=== PATIENT | male | born 1965 | race Caucasian/White ===

== ENCOUNTER 2019-08-19 08:40 | Inpatient (IN) | payer MEDICARE, OTHER ==
--- NOTE | 2019-08-18 17:00 | Pre-op HX & Phy Repo 2 SIG ---
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 The patient has a past history of ulcerative colitis. In 1993, he underwent proctocolectomy with Sarahi ileostomy, which was converted in 2008 to a Hernandez type of Kock pouch continent ileostomy. He required revision of the stoma in October 2009 and revision of the valve of his pouch in February 2010. On 12/19/2018 in [place], he underwent another revision of his stoma, but that has resulted in poor healing with the stoma being very stenotic and retracted mucosa, although he is able to insert his intubation catheter to evacuate stool several times daily. For several months, he used an indwelling stent, but the stoma has not improved and he struggles to get the catheter into the opening. He is not having any of the pouch problems. He is scheduled to undergo admission with pouch endoscopy and revision of the stoma or laparotomy with creation of a new valve with preservation of the existing Hernandez pouch with creation of a new valve and stoma, possible relocation to the left lower quadrant. MEDICATIONS: Metformin, pantoprazole, Protonix, and naltrexone, he takes 4.5 mg for chronic pain in his neck and knees due to arthritis. He also takes magnesium citrate capsules for magnesium replacement. ALLERGIES TO MEDICATIONS: None. OPERATIONS: In addition to the above, he has undergone bilateral total knee replacement, neck fusion in 2013, shoulder surgery on the left side, bilateral knee replacement 2015. PHYSICAL EXAMINATION: The patient is 6 foot, approximately 185 pounds. [place] and will be examined upon arrival and dictated separately. IMPRESSION: 1. Malfunctioning Hernandez continent ileostomy with recurrent stenosis and stricture of the stoma. 2. History of ulcerative colitis. 3. Diabetes. 4. Status post neck fusion in 2013 and total knee replacement in 2016. 5. Status post multiple abdominal operations. 5.1. Proctocolectomy and Sarahi ileostomy in 1993. 5.2. Hernandez continent ileostomy in 2008. 5.3. Revision of Hernandez continent ileostomy stoma in October 2009. 5.4. Revision of Hernandez continent ileostomy valve in February 2010. 5.5. Revision of Hernandez continent ileostomy stoma in [place] December 2018. PLAN: The patient will be admitted to undergo insertion of a dual lumen PICC line. A full bowel prep, pouch endoscopy, insertion of a catheter into his pouch for continuous gravity drainage, and preoperative oral as well as intravenous antibiotics and subcutaneous heparin. I have had a full discussion with the patient regarding his condition, the nature of the surgery. We will have another detailed discussion in person when he arrives from out of state. Umer Dixon M.D. DR: ANGELIKA JOB#: [id number] CC:
[~2019-08-19] VITALS: Ht 182.9 cm; Wt 75.7 kg
[2019-08-19 09:00] VITALS: BP 127/85
--- NOTE | 2019-08-19 09:05 | Anethesia Preoperative Eval ---
Anesthesia Pre-op PMH/ROS General Date of Evaluation: Aug 19, 2019 Time of Evaluation: 09:05 Anesthesiologist: jared ASA Score: ASA 2 Mallampati Score Class I : Soft palate, uvula, fauces, pillars visible Class II: Soft palate, uvula, fauces visible Class III: Soft palate, base of uvula visible Class IV: Only hard plate visible Mallampati Classification: Class II Surgeon: Destiny Diagnosis: Malfunction of Hernandez ileostomy Surgical Procedure: Revision of stoma; laparatomy Anesthesia History: none Family History: no anesthesia problems Allergies: Coded Allergies: No Known Allergies (Verified Allergy, Mild, 02/14/10) Medications: see eMAR Patient NPO?: Yes NPO Date: Aug 19, 2019 NPO Time: 00:01 Past Medical History Cardiovascular: Reports: HTN; Denies: CAD, HI, valve dz, arrhythmia, other Pulmonary: Denies: asthma, COPD, [place], other Gastrointestinal/Genitourinary: Reports: other - u colitis; Denies: GERD, CRI, ESRD Neurologic/Psychiatric: Denies: dementia, CVA, depression/anxiety, TIA, other Endocrine: Reports: DM; Denies: hypothyroidism, steroids, other HEENT: Denies: cataract (L), cataract (R), glaucoma, [place] (L), [place] (R), other Hematology/Immune: Denies: anemia, DVT, bleeding disorder, other Musculoskeletal/Integumentary: Reports: DJD; Denies: OA, RA, DDD, edema, other PMH Narrative: chronic pain PSxH Narrative: bilateral total knee replacement, neck fusion in 2013, shoulder surgery on the left side, bilateral knee replacement 2015; multiple abd surgeries Anesthesia Pre-op Phys. Exam Physician Exam Constitutional: NAD Neurologic: CN 2-12 intact Cardiovascular: RRR Respiratory: CTA Gastrointestinal: S/NT/ND Airway Exam Mallampati Classification 2 Mallampati Score: Class II MO: full ROM: full Dentures: no upper, no lower Anesthesia Pre-op A/P Studies Pre-op Studies: EKG - SR Risk Assessment & Plan Plan: Amarilys Blanco CRNA Aug 19, 2019 09:05
[2019-08-19] MEDS ORDERED: Zolpidem 5mg tab ORAL PRN (09:30)
[2019-08-19] MEDS ORDERED: Lidocaine 1% Plain 30 ml INJ PRN (09:30)
[2019-08-19] MEDS ORDERED: Heparin1,000 units/500ml Premix(Conc:2 units/ml) IV PRN (09:30)
--- NOTE | 2019-08-19 10:21 | NUR ---
NURSE NOTES: ADMITTED A 54 YR OLD MALE WITH DX OF MALFUNCTIONING VELÁZQUEZ CONTINENT ILEOSTOMY. AWAKEALERT. ADM CARE DONE SEE ADM ASSESSMENT.
[2019-08-19] MEDS ORDERED: METFORMIN HCL1000 M1 ORAL (10:30)
[2019-08-19] MEDS ORDERED: PANTOPRAZOLE SO40 MG ORAL (10:30)
[2019-08-19 10:43] LABS: BASOPHILS % (AUTO) 1.1 % (0.0-2.0); EOSINOPHILS % (AUTO) 6.1 % (0.0-3.0); HEMATOCRIT 44.5 % (42.0-52.0); HEMOGLOBIN 14.6 G/DL (14.2-18.0); LYMPHOCYTES % (AUTO) 17.4 % (20.0-45.0); MEAN CORPUSCULAR VOLUME 85 FL (80-99); MONOCYTES % (AUTO) 8.7 % (1.0-10.0); NEUTROPHILS % (AUTO) 66.7 % (45.0-75.0); PLATELET COUNT 284 K/UL (150-450); RED BLOOD COUNT 5.26 M/UL (4.70-6.10); RED CELL DISTRIBUTION WIDTH 12.3 % (11.6-14.8); WHITE BLOOD COUNT 5.6 K/UL (4.8-10.8)
[2019-08-19 10:48] LABS: ANION GAP 4 mmol/L (5-15); BLOOD UREA NITROGEN 17 mg/dL (7-18); CALCIUM 9.4 MG/DL (8.5-10.1); CARBON DIOXIDE 34 MMOL/L (21-32); CHLORIDE 103 MMOL/L (98-107); SODIUM 141 MMOL/L (136-145)
[2019-08-19 10:54] LABS: INR 0.9 (0.9-1.1)
[2019-08-19 10:57] LABS: ALANINE AMINOTRANSFERASE 24 U/L (12-78); ALBUMIN 3.7 G/DL (3.4-5.0); ALKALINE PHOSPHATASE 64 U/L (46-116); ASPARTATE AMINO TRANSFERASE 10 U/L (15-37); BILIRUBIN,TOTAL 0.3 MG/DL (0.2-1.0)
[2019-08-19] MEDS: Neomycin Sulfate 500mg Tab ORAL SCH ×3 (11:46→20:55)
--- NOTE | 2019-08-19 11:57 | Diagnostic Imaging Report ---
Indication: Cough Comparison: None A single view chest radiograph was obtained. Findings: Cardiomediastinal appearance is within normal limits for age. The lungs are clear. Pulmonary vascularity is appropriate. The diaphragmatic contour is smooth and costophrenic angles are sharp. No pleural effusions are identified. There is a lower cervical fusion plate. The bones are unremarkable. Impression: No acute findings
[2019-08-19 12:00] VITALS: BP 133/87
[2019-08-19 12:04] LABS: APPEARANCE,URINE CLEAR; BILIRUBIN, URINE NEGATIVE (NEGATIVE); GLUCOSE, URINE (UA) 2+ (NEGATIVE); KETONES,URINE 1+ (NEGATIVE); LEUKOCYTE ESTERASE ,URINE NEGATIVE (NEGATIVE); NITRITE,URINE NEGATIVE (NEGATIVE); PH,URINE 5 (4.5-8.0); PROTEIN,URINE NEGATIVE (NEGATIVE); UROBILINOGEN,URINE NORMAL MG/DL (0.0-1.0)
[2019-08-19 12:19] LABS: COLOR,URINE YELLOW
[2019-08-19] MEDS: NovoLOG Insulin Flexpen SUBQ SCH ×3 (12:35→21:07)
--- NOTE | 2019-08-19 12:48 | Pre-Procedure Note/Attestation ---
Pre-Procedure Note/Attestation Complete Prior to Procedure Planned Procedure: not applicable Procedure Narrative: Hernandez continent ileostomy pouch endoscopy Indications for Procedure Pre-Operative Diagnosis: recurrent stoma stricture of Hernandez Pouch Attestation I attest that I discussed the nature of the procedure; its benefits; risks and complications; and alternatives (and the risks and benefits of such alternatives ), prior to the procedure, with the patient (or the patient's legal field sales representative). I attest that, if there was a reasonable possibility of needing a blood transfusion, the patient (or the patient's legal field sales representative) was given the [facility] standardized written summary, pursuant to the [place] Blood Safety Act ([place] Health and Safety Code # 1645, as amended). I attest that I re-evaluated the patient just prior to the surgery and that there has been no change in the patient's H&P, except as documented below: none Umer Dixon MD Aug 19, 2019 12:48
[2019-08-19] MEDS ORDERED: Omnipaque-300 100ml vial INJ PRN (13:30)
--- NOTE | 2019-08-19 13:34 | Brief Operative Note ---
Immediate Post Operative Note Operative Note Pre-op Diagnosis: recurrent stoma stricture of Hernandez Pouch Procedure: Hernandez pouch endoscopy Post-op Diagnosis: recurrent stoma stenosis RLQ mass and marked peristomal inflammation Post-op Diagnosis: same as pre-op plus - RLQ mass and inflammation Findings: consistent w/pre-op dx studies Surgeon: agata Anesthesiologist: danita Anesthesia: other - none Specimen: none Complications: none Condition: stable Fluids: none Estimated Blood Loss: none Drains: other - 28 Serrano to Hernandez pouch Implant(s) used?: No Umer Dixon MD Aug 19, 2019 13:34
[2019-08-19 14:00] VITALS: BP 132/77
--- NOTE | 2019-08-19 14:00 | NUR ---
NURSE NOTES: BACK TO ROOM SP EBER POUCH ENDOSCOPY., AND PICC LINE INSERTION SATNAM. AWAKE ALERT. WITH ILEOSTOMY CATHETER TO DRAINAGE BAG DRAINING BROWN OUTPUT. V/S TAKEN. IN NO ACUTE DISTRESS.
--- NOTE | 2019-08-19 14:15 | NUR ---
RADIOLOGY NOTE: LEFT UPPER EXTREMITY PICC PLACED.
--- NOTE | 2019-08-19 15:42 | General Progress Note ---
Progress Note Progress Note H&P dictated. Hernandez pouch endoscopy reveals stoma stricture with retracted mucosa. Exam reveals RLQ mass with marked peristomal inflammation and induration with tenderness. BUN 17 Cr 1.0 Albumin 3.7 Imp: Recurrent Hernandez pouch stoma stricture RLQ mass R/O incarcerated peristomal hernia vs. inflammatory mass Plan; CT scan abd+pelvis with oral and IV contrast IV hydration and f/u labs Delay surgery until 08/[address] scan findings Continuous drainage of Hernandez continent ileostomy Umer Dixon MD Aug 19, 2019 15:42
--- NOTE | 2019-08-19 15:45 | Pre-op HX & Phy Repo 2 SIG ---
DATE OF ADMISSION: 08/19/2019 HISTORY OF PRESENT ILLNESS: The patient is now [place] and is examined. He states he has lost approximately 30 pounds, but feels that he eats normally. PHYSICAL EXAMINATION: GENERAL: He is 6 foot, 150 pounds, well-developed, well-nourished despite appearing thin. HEENT: Within normal limits. LUNGS: Clear. HEART: Regular rhythm. BREASTS: Without masses. ABDOMEN: Soft with a long midline scar and other transverse scars. There is a right lower quadrant stoma from the Hernandez continent ileostomy pouch with marked peristomal fibrosis thickening, swelling, and tenderness and a right lower quadrant mass, approximately 8 x 10 cm. It is uncertain whether this is a incarcerated parastomal hernia or inflammatory in nature. It is tender and not reducible. GENITALIA: Within normal limits. RECTAL: Status post proctectomy. EXTREMITIES: Without edema. Pulses 2+ femoral to pedal bilaterally. NEUROLOGIC: Physiologic. IMPRESSION: 1. Malfunctioning Hernandez continent ileostomy with recurrent stenosis and stricturing of the stoma. 2. Right lower quadrant mass of uncertain etiology. 3. Diabetes. 4. History of ulcerative colitis. 5. Status post neck fusion in 2013 and total knee replacement in 2015. 6. STATUS POST MULTIPLE ABDOMINAL OPERATIONS: 6.1. Proctocolectomy and Sarahi ileostomy in 1993. 6.2. Hernandez continent ileostomy in 2002. 6.3. Revision of Hernandez continent ileostomy stoma, October 2009. 6.4. Revision of Hernandez continent ileostomy valve, February 2010. 6.5. Revision of Hernandez continent ileostomy stoma performed in [place] in December 2018. PLAN: The patient will undergo pouch endoscopy. He will require a CT scan of abdomen and pelvis with oral and IV contrast with an indwelling catheter in his Hernandez pouch to continuous gravity drainage. Surgical revision of the stoma, which may require laparotomy with creation of a new valve and stoma with preservation of the existing Hernandez pouch will be deferred until the CT scan results are known and appropriate plans undertaken. Umer Dixon M.D. DR: KT/HECTOR JOB#: [id number] CC:
[2019-08-19 16:00] VITALS: BP 129/80
[2019-08-19] MEDS ORDERED: NovoLOG Insulin Flexpen SUBQ SCH (16:30)
--- NOTE | 2019-08-19 17:08 | Diagnostic Imaging Report ---
Indication: watermelon harvesting supervisor venous access Findings: After the indications, procedure, risks, complications, and alternatives of the procedure were explained, written informed consent was obtained. The left upper extremity was prepped with alcohol. All elements of maximal sterile barrier technique were followed including usage of a cap, mask, sterile gown, sterile gloves, hand hygiene and a large sterile sheet. Sonographic evaluation of the upper extremity was performed demonstrating a patent and compressible basilic vein. Access was obtained under real-time ultrasound guidance (with utilization of sterile gel and sterile probe cover) and digital image was saved and archived. An .018 wire was introduced. Needle exchanged for a 5 Kyrgyz peel-away sheath. Measurements were obtained. A 5 Kyrgyz dual-lumen Power PICC line catheter was cut to 45 cm and introduced over the wire. Peel-away sheath and wire were removed.Catheter was secured to the skin using 2-0 Prolene suture. Both ports aspirate and flush easily. A single fluoroscopic image shows the distal tip in the superior vena cava. Total fluoroscopic time was 30 seconds. Impression: Successful placement of an upper extremity PICC line catheter
[2019-08-19] MEDS: D5 1/2NS w/KCl 20mEq 1,000 ML IV SCH (17:51)
--- NOTE | 2019-08-19 18:30 | NUR ---
NURSE NOTES: AMBULATED OUT IN THE [place],TOLERATED.
--- NOTE | 2019-08-19 19:00 | NUR ---
NURSE NOTES: QUIET IN BED. NO APPARENT DISCOMFORT.
--- NOTE | 2019-08-19 19:16 | NUR ---
HAND-OFF: Report given to CHIARA PEREZ.
--- NOTE | 2019-08-19 19:30 | NUR ---
NURSE NOTES: Received patient in no apparent distress. A&OX4. PICC line noted on left upper arm, patent and intact. Remind patient midnight NPO, patient fully understood. Bed in lowest position. Call light within reach. Will continue to monitor.
[2019-08-19 20:00] VITALS: BP 137/84
--- NOTE | 2019-08-19 20:00 | Procedure Note ---
DATE OF PROCEDURE: 08/19/2019 ENDOSCOPIST: Umer Dixon M.D. ANESTHESIA: None. SEDATION: None. PRE-ENDOSCOPY DIAGNOSES: 1. Recurrent stoma stricture and stenosis of Hernandez continent ileostomy. 2. History of ulcerative colitis. 3. Status post multiple abdominal operations. 3.1. Proctocolectomy and Sarahi ileostomy in 1993. 3.2. Hernandez continent ileostomy in 2008. 3.3. Revision of Hernandez continent ileostomy stoma in October 2009. 3.4. Revision of Hernandez continent ileostomy valve in February 2010. 3.5. Revision of Hernandez continent ileostomy stoma performed in [place] in December 2018. POST-ENDOSCOPY DIAGNOSES: 1. Recurrent stoma stricture and stenosis of Hernandez continent ileostomy. 2. History of ulcerative colitis. 3. Status post multiple abdominal operations. 3.1. Proctocolectomy and Sarahi ileostomy in 1993. 3.2. Hernandez continent ileostomy in 2008. 3.3. Revision of Hernandez continent ileostomy stoma in October 2009. 3.4. Revision of Hernandez continent ileostomy valve in February 2010. 3.5. Revision of Hernandez continent ileostomy stoma performed in [place] in December 2018. ENDOSCOPY PERFORMED: Hernandez continent ileostomy pouch endoscopy. FINDINGS: Examination of the patient's abdomen reveals a right lower quadrant mass with tenderness and marked peristomal inflammation and fibrosis with retraction of the mucosa below the skin at least 1 cm. It is uncertain whether the mass is inflammatory in nature or incarcerated peristomal hernia. The endoscopy revealed a redundant access segment with the distance from the stoma to the tip of the valve 12 cm which in this patient should be 8 or 9 cm. PROCEDURE IN DETAIL: The patient was positioned supine in the GI lab without any sedation or anesthesia given or needed. Using a GIF-P140 endoscope, the stoma was entered and a somewhat angulated tract negotiated into the pouch. The pouch was distensible and mucosa appeared normal. Retroflexed views revealed a well formed valve, but the tip of the valve had a broad band of tissue stretching to the pouch wall. However, the patient has no incontinence and no difficulty with intubation other than at the stoma. Withdrawal views confirmed the above findings. Following removal of the endoscope, I manipulated the 28-Uzbek Serrano into the pouch and completely decompressed it, taped it to the skin with a dressing over the stoma and connected to a continuous gravity drainage. The patient will need to undergo CT scan of abdomen and pelvis with oral and intravenous contrast before undergoing surgical revision of the stoma, which could require laparotomy with creation of a new valve and stoma. He tolerated the endoscopy well. Umer Dixon M.D. DR: KIESHA JOB#: [id number] CC:
[2019-08-19] MEDS: Dyna-Hex 2% Top Sol 2oz TOPIC SCH (20:55)
[2019-08-20] VITALS: BP 132/78
[2019-08-20] MEDS ORDERED: Ampicillin/Sulbactam Sod 3 GM in NS 110 ML IV SCH ×2
[2019-08-20] MEDS: D5 1/2NS w/KCl 20mEq 1,000 ML IV SCH ×3 (03:16→23:22)
[2019-08-20 04:00] VITALS: BP 138/91
[2019-08-20 05:16] LABS: BASOPHILS % (AUTO) 0.5 % (0.0-2.0); EOSINOPHILS % (AUTO) 6.8 % (0.0-3.0); HEMATOCRIT 38.5 % (42.0-52.0); HEMOGLOBIN 12.7 G/DL (14.2-18.0); LYMPHOCYTES % (AUTO) 21.7 % (20.0-45.0); MEAN CORPUSCULAR VOLUME 84 FL (80-99); MONOCYTES % (AUTO) 8.9 % (1.0-10.0); NEUTROPHILS % (AUTO) 62.1 % (45.0-75.0); PLATELET COUNT 236 K/UL (150-450); RED BLOOD COUNT 4.61 M/UL (4.70-6.10); RED CELL DISTRIBUTION WIDTH 12.1 % (11.6-14.8); WHITE BLOOD COUNT 3.9 K/UL (4.8-10.8)
[2019-08-20] MEDS ORDERED: Heparin 5000 units/ml inj SUBQ SCH (05:30)
[2019-08-20 05:37] LABS: ALANINE AMINOTRANSFERASE 18 U/L (12-78); ALBUMIN 3.1 G/DL (3.4-5.0); ALKALINE PHOSPHATASE 60 U/L (46-116); ANION GAP 3 mmol/L (5-15); ASPARTATE AMINO TRANSFERASE 12 U/L (15-37); BILIRUBIN,TOTAL 0.4 MG/DL (0.2-1.0); BLOOD UREA NITROGEN 9 mg/dL (7-18); CALCIUM 8.5 MG/DL (8.5-10.1); CARBON DIOXIDE 32 MMOL/L (21-32); CHLORIDE 102 MMOL/L (98-107); CREATININE 0.9 MG/DL (0.55-1.30); POTASSIUM 3.9 MMOL/L (3.5-5.1); SODIUM 137 MMOL/L (136-145)
[2019-08-20] MEDS: NovoLOG Insulin Flexpen SUBQ SCH ×4 (06:27→20:20)
--- NOTE | 2019-08-20 07:35 | NUR ---
HAND-OFF: Report given to Nicci PEREZ.
[2019-08-20 08:00] VITALS: BP 141/86
--- NOTE | 2019-08-20 08:00 | NUR ---
NURSE NOTES: Pt received from Bony PEREZ. Pt awake, AOx4 with no complaints of pain and no s/sx of distress. RR even and unlabored on RA. Ileostomy bag draining well to gravity. SATNAM PICC line dressing dry and intact with fluids infusing. Pt aware that CT of the ABD is scheduled for today. Oral contrast has not been provided yet. Will administer when available. Side rails upx2, bed low and locked, call light within reach. Will continue to monitor.
--- NOTE | 2019-08-20 09:00 | NUR ---
NURSE NOTES: Patient drank oral contrast. Ileostomy flushed.
--- NOTE | 2019-08-20 10:15 | NUR ---
NURSE NOTES: Pt taken down for CT. Fluids infusing.
--- NOTE | 2019-08-20 10:40 | NUR ---
NURSE NOTES: Patient returned from CT.
--- NOTE | 2019-08-20 11:03 | Diagnostic Imaging Report ---
Indication: Abdominal pain Technique: Continuous helical transaxial imaging of the abdomen and pelvis was obtained from the lung bases to the pubic symphysis during intravenous contrast administration. Coronal 2-D reformats were also obtained. Study obtained in a Siemens sensation [address] Automatic Exposure Control was utilized. Total Dose length Product (DLP): 754.[address] Dose Index Volume (CTDIvol): 13.6 mGy Comparison: None Findings: There is mild posterior basal atelectasis. There are surgical clips in the upper abdomen. The liver and spleen, adrenal glands and pancreas appear unremarkable. There are small bilateral renal hypodensities that are probably cystic. Gallbladder is moderately contracted. There is a continent ileostomy in the right lower quadrant. The catheter is within the pouch which is opacified by contrast material. There is no small bowel dilatation to suggest obstruction. There is a dilated contrast filled structure anterior to the pouch containing the catheter most likely representing part of the pouch or possibly a dilated, nonobstructed small bowel segment proximal to the pouch. There is no evidence of abscess. There is no free fluid. Urinary bladder is unremarkable. IMPRESSION: Continent ileostomy demonstrated. Catheter position is satisfactory. No evidence of bowel obstruction or other abnormalities. There is a prominent loop of the bowel which appears pouchlike, anterior to the catheter which is most likely part of the pouch. Atherosclerotic vascular disease Suggestion of bilateral renal cysts. Mild basal atelectasis The CT scanner at [facility] is accredited by the [employer] and the scans are performed using dose optimization techniques as appropriate to a performed exam including Automatic Exposure control.
[2019-08-20 12:00] VITALS: BP 138/85
--- NOTE | 2019-08-20 12:13 | General Progress Note ---
Progress Note Progress Note AVSS CT scan of abd+pelvis with contrast reveals only desmoplastic reaction harriett-stomal with some thickening of subq fat of RLQ abdominal wall. No hernia, No abscess Full discussion with patient regarding stoma revision, possible laparotomy with revision of Hernandez pouch and gastrostomy, including general risks and specific risks of BCIR revision; all questions answered. Plan: surgery tomorrow IV Flagyl + Unasyn pre-op SQ heparin Umer Dixon MD Aug 20, 2019 12:13
[2019-08-20 16:00] VITALS: BP 139/86
[2019-08-20] MEDS ORDERED: NS Irrig 1000ml ONE (16:26)
--- NOTE | 2019-08-20 16:43 | NUR ---
CASE MANAGEMENT:REVIEW 54 YR OLD FEMALE HERE FOR ELECTIVE SURGERY SI: RECURRENT STOMA STENOSIS RLQ MASS AND MARKED PERISTOMAL INFLAMMATION 97.4 82 18 127/85 99% ON RA GLUCOSE+168 IS: IVF@100/HR VELÁZQUEZ POUCH ENDOSCOPY : TO MED/SURG 3 [facility] INTERQUAL CRITERIA MET
--- NOTE | 2019-08-20 19:26 | NUR ---
HAND-OFF: Report given to Kandi PEREZ. Patient stable. Addendum: 08/20/19 at 1927 by RHIANNA CHAPMAN RN Consent signed and in chart.
--- NOTE | 2019-08-20 19:28 | NUR ---
NURSE NOTES: Patient is sitting in bedside chair, awake and alert x4. On room air with No signs of distress or SOB. Ileostomy bag intact and draining well. SATNAM PICC line intact and patent. Bed locked and in lowest position. Call light in reach. Will continue to monitor.
[2019-08-20 20:00] VITALS: BP 154/92
[2019-08-20] MEDS: Dyna-Hex 2% Top Sol 2oz TOPIC SCH (20:12)
[2019-08-21] VITALS (17 sets, daily range): BP systolic 109–145; BP diastolic 65–92
[2019-08-21] MEDS: NovoLOG Insulin Flexpen SUBQ SCH ×5 (05:46→20:46)
--- NOTE | 2019-08-21 06:00 | NUR ---
NURSE NOTES: True output 20 mL. Per patient, someone emptied ileostomy bag an hour prior. 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
[2019-08-21 06:12] LABS: BASOPHILS % (AUTO) 1.1 % (0.0-2.0); EOSINOPHILS % (AUTO) 8.2 % (0.0-3.0); HEMATOCRIT 37.5 % (42.0-52.0); HEMOGLOBIN 12.3 G/DL (14.2-18.0); LYMPHOCYTES % (AUTO) 19.9 % (20.0-45.0); MEAN CORPUSCULAR VOLUME 84 FL (80-99); MONOCYTES % (AUTO) 9.4 % (1.0-10.0); NEUTROPHILS % (AUTO) 61.4 % (45.0-75.0); PLATELET COUNT 203 K/UL (150-450); RED BLOOD COUNT 4.49 M/UL (4.70-6.10); RED CELL DISTRIBUTION WIDTH 12.1 % (11.6-14.8); WHITE BLOOD COUNT 3.6 K/UL (4.8-10.8)
[2019-08-21] MEDS: Ampicillin/Sulbactam Sod 3 GM in NS 110 ML IVPB SCH ×2 (06:15→11:50)
--- NOTE | 2019-08-21 07:06 | NUR ---
HAND-OFF: Report given to ANA Grajeda.
--- NOTE | 2019-08-21 07:18 | NUR ---
NURSE NOTES: Pt received from Kandi PEREZ. Pt awake, AOx4 with no complaints of pain and no s/sx of distress. RR even and unlabored on RA. Ileostomy bag draining well to gravity. SATNAM PICC line dressing dry and intact with fluids infusing. Pt ready for procedure today. Consent is signed and preop checklist completed. Side rails upx2, bed low and locked, call light within reach. Will continue to monitor. Addendum: 08/21/19 at 1025 by RHIANNA CHAPMAN RN PICC line flushed. Some resistance to red port but still able to flush.
[2019-08-21 07:22] LABS: IRON 49 ug/dL (50-175); TOTAL IRON BINDING CAPACITY 317 ug/dL (250-450)
[2019-08-21 07:23] LABS: % IRON SATURATION 15 % (15-50)
[2019-08-21 07:48] LABS: ANION GAP 10 mmol/L (5-15); BLOOD UREA NITROGEN 5 mg/dL (7-18); CALCIUM 8.6 MG/DL (8.5-10.1); CARBON DIOXIDE 27 MMOL/L (21-32); CHLORIDE 106 MMOL/L (98-107); CREATININE 0.7 MG/DL (0.55-1.30); FERRITIN 27 NG/ML (8-388); POTASSIUM 4.2 MMOL/L (3.5-5.1); SODIUM 143 MMOL/L (136-145)
--- NOTE | 2019-08-21 09:53 | NUR ---
CASE MANAGEMENT:REVIEW 08/21/19 SI: RECURRENT STOMA STENOSIS RLQ MASS AND MARKED PERISTOMAL INFLAMMATION 97.0 62 18 126/80 97% ON RA H/H-12.3/37.5 GLUCOSE+143 IS: IV FLAGYL Q6HRS IV AMPICILLIN Q6HRS IVF@100/HR HEPARIN SQ : MED/SURG STATUS 3 EAST PLAN: SCHEDULED FOR SURGERY FOR TODAY
[2019-08-21] MEDS: D5 1/2NS w/KCl 20mEq 1,000 ML IV SCH (09:59)
[2019-08-21] MEDS ORDERED: Heparin 5000 units/ml inj SUBQ SCH (10:00)
[2019-08-21] MEDS ORDERED: Lidocaine 1% MPF 10mg/ml 5ml ONE (12:01)
[2019-08-21] MEDS ORDERED: Propofol 200mg/20ml IV ONE (12:01)
[2019-08-21] MEDS ORDERED: Midazolam 2mg/2ml Inj ONE (12:01)
[2019-08-21] MEDS ORDERED: fentaNYL 100 mcg/2 mL IV ONE (12:01)
[2019-08-21] MEDS ORDERED: Rocuronium Bromide 50mg/5ml Inj IV ONE (12:05)
--- NOTE | 2019-08-21 12:12 | Pre-Procedure Note/Attestation ---
Pre-Procedure Note/Attestation Complete Prior to Procedure Planned Procedure: not applicable Procedure Narrative: revision of Hernandez continent ileostomy stoma, possible laparotomy with Hernandez pouch revision and possible gastrostomy Indications for Procedure Pre-Operative Diagnosis: recurrent stoma stricture of Hernandez Pouch Attestation I attest that I discussed the nature of the procedure; its benefits; risks and complications; and alternatives (and the risks and benefits of such alternatives ), prior to the procedure, with the patient (or the patient's legal office machines sales representative). I attest that, if there was a reasonable possibility of needing a blood transfusion, the patient (or the patient's legal office machines sales representative) was given the [place] [facility] standardized written summary, pursuant to the [place] Blood Safety Act ([place] Health and Safety Code # 1645, as amended). I attest that I re-evaluated the patient just prior to the surgery and that there has been no change in the patient's H&P, except as documented below: none Umer Dixon MD Aug 21, 2019 12:12
--- NOTE | 2019-08-21 12:35 | NUR ---
NURSE NOTES: Patient taken down for surgery. 150mL drained from Ileostomy bag.
[2019-08-21] MEDS ORDERED: Sterile Water Irrig 1000ml IRRIG ONE (12:43)
[2019-08-21] MEDS ORDERED: LR 1000ml ONE (12:43)
[2019-08-21] MEDS ORDERED: Bacitracin 50000 Units Vial IRRIG ONE (13:00)
[2019-08-21] MEDS ORDERED: Glycopyrrolate 0.2mg/ml 1ml Vial ONE (13:51)
[2019-08-21] MEDS ORDERED: Morphine Sulfate 10mg/ml Inj ONE (13:51)
[2019-08-21] MEDS ORDERED: Ketorolac 30mg Inj IV PRN (14:00)
[2019-08-21] MEDS ORDERED: DiphenhydrAMINE 50mg/ml Inj IVP PRN (14:00)
[2019-08-21] MEDS ORDERED: LORazepam 1mg tab SL PRN ×2 (14:45)
--- NOTE | 2019-08-21 14:45 | Brief Operative Note ---
Immediate Post Operative Note Operative Note Pre-op Diagnosis: recurrent stoma stricture of Hernandez Pouch Procedure: complex revision of Hernandez pouch stoma Post-op Diagnosis: recurrent stoma stricture of Hernandez continent ileostomy Post-op Diagnosis: same as pre-op Findings: consistent w/pre-op dx studies Surgeon: agata Raw Finish Mill Operator: david Anesthesiologist: javed Anesthesia: general Specimen: yes - stoma stricture Complications: none Condition: stable Fluids: see anesthesia record Estimated Blood Loss: minimal Drains: other - 28 Serrano to Hernandez pouch. 0.25" misbah Implant(s) used?: No Umer Dixon MD Aug 21, 2019 14:45
--- NOTE | 2019-08-21 14:49 | Immediate Post-Op Evaluation ---
Immediate Post-Op Evalulation Immediate Post-Op Evalulation Procedure: Revision of continent pouch stoma Date of Evaluation: Aug 21, 2019 Time of Evaluation: 14:46 IV Fluids: 500 Blood Products: Albumin 250 Estimated Blood Loss: min Urinary Output: 200 Blood Pressure Systolic: 114 Blood Pressure Diastolic: 80 Pulse Rate: 65 Respiratory Rate: 20 O2 Sat by Pulse Oximetry: 100 Temperature (Fahrenheit): 97.8 Pain Score (1-10): 1 Nausea: No Vomiting: No Complications none Patient Status: awake, patent, extubated, none Hydration Status: adequate Leonardo Mensah MD Aug 21, 2019 14:49
[2019-08-21] MEDS: Hydromorphone 0.5mg/0.5ml inj IVP PRN ×2 (15:00→15:09)
--- NOTE | 2019-08-21 16:45 | NUR ---
NURSE NOTES: Pt received from PACU. Patient AOx4 with no complaints of pain and no s/sx of distress. RR even and unlabored on 2L NC. Dressing dry and intact with Ileostomy draining well to gravity. Serrano draining to gravity. SCDs on. Will continue to monitor.
[2019-08-21] MEDS: 1/2NS w/KCl 20mEq 1000ml 1,000 ML IV SCH (17:13)
[2019-08-21] MEDS: Ampicillin/Sulbactam Sod 3 GM in NS 110 ML IV SCH (18:04)
--- NOTE | 2019-08-21 18:45 | Operative Note - Dictated ---
DATE OF OPERATION: 08/21/2019 SURGEON: Umer Dixon M.D. RN NIGHT: Juliocesar Gold M.D. ANESTHESIOLOGIST: Leonardo Mensah M.D. TYPE OF ANESTHESIA: General. PREOPERATIVE DIAGNOSES: 1. 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 2. History of ulcerative colitis. 3. Status post multiple abdominal operations. 3.1. Proctocolectomy and Sarahi ileostomy in 1993. 3.2. Hernandez continent intestinal reservoir 2008. 3.3. Revision of Hernandez continent ileostomy stoma in October 2009. 3.4. Revision for Hernandez continent ileostomy valve February 2010. 3.5. Revision of Hernandez continent ileostomy stoma performed in [place] in December 2018. POSTOPERATIVE DIAGNOSES: 1. 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 2. History of ulcerative colitis. 3. Status post multiple abdominal operations. 3.1. Proctocolectomy and Sarahi ileostomy in 1993. 3.2. Hernandez continent intestinal reservoir 2008. 3.3. Revision of Hernandez continent ileostomy stoma in October 2009. 3.4. Revision for Hernandez continent ileostomy valve February 2010. 3.5. Revision of Hernandez continent ileostomy stoma performed in [place] in December 2018. OPERATION PERFORMED: Complex revision of Hernandez continent ileostomy stoma in depth. DESCRIPTION OF PROCEDURE: The patient was taken to the operating room and under general endotracheal anesthesia with sequential compression device stockings in place, the patient was prepped and draped in usual fashion having received preoperative intravenous antibiotics and subcutaneous heparin. There was a marked desmoplastic reaction around the stoma oriented transversely. An elliptical incision was made encompassing all of this reaction achieving hemostasis with cautery. The stoma was circumscribed. The thickened tissue was resected from the musculature of the abdominal wall starting medial and lateral into the stoma and access segment of the Hernandez pouch was identified. A 28-Welsh Serrano catheter in the stoma facilitated dissection. I was able to mobilize flaps circumferentially so that the skin come together without any tension. We could not elevate the stoma from the abdominal wall, but the skin would come to it without tension and the stoma was wide open with the resection of the desmoplastic skin with the orifice of the stoma. The medial and lateral aspects of the incision were closed with interrupted 3-0 Vicryl and then the stoma was primarily matured superiorly with interrupted 2-0 chromic sutures from 3 and 9 o'clock and inferiorly with interrupted and continuous 2-0 chromic locking suture. A 28-Welsh Serrano catheter was positioned into the pouch with slight manipulation required. Good position was confirmed with irrigation. A quarter-inch Kittredge drain was placed into the subcutaneous tissues over the fascia and brought out to the medial aspect of the incision. The skin incision, medial, lateral was closed with 4-0 Monocryl interrupted suture. The Hernandez pouch catheter was appropriately positioned and sutured to the skin with two sutures of 2-0 silk flushed and connected to gravity drainage bag. Dry sterile dressings were applied. Final sponge and needle counts were correct. The patient tolerated the procedure well and left the operating room in good condition. Umer Dixon M.D. DR: Luisana JOB#: [id number] CC:
--- NOTE | 2019-08-21 19:43 | NUR ---
HAND-OFF: Report sheet given to charge nurse Elvie PEREZ. Patient stable.
--- NOTE | 2019-08-21 20:30 | NUR ---
NURSE NOTES: REPORT RECEIVED FROM CHARGE NURSE RONALD. PT IS AWAKE, AAOX4, ON NC 2L, NO ACUTE DISTRESS NOTED. SCD PRESENT. BRIGHT CATH IS INTACT AND PATENT. BRIGHT ANCHOR IN PLACE. ILEOSTOMY IS DRAINING WELL. DRESSING IS DRY AND INTACT. PICC LINE ON LEFT UPPER ARM IS PATENT RUNNING D5 1/2 NS WITH 20 MEQ. BED IS LOCKED AND LOW, BED ALARMS ACTIVE, SIDE RAILS UP X2 AND CALL LIGHT IS WITHIN REACH. WILL CONTINUE TO MONITOR.
[2019-08-21] MEDS: Dyna-Hex 2% Top Sol 2oz TOPIC SCH (20:45)
[2019-08-21] MEDS: HYDROcodone/Acetamin 5/325 tab ORAL PRN (21:34)
[2019-08-22] VITALS: BP 100/59
[2019-08-22] MEDS: 1/2NS w/KCl 20mEq 1000ml 1,000 ML IV SCH ×4 (01:05→14:50)
[2019-08-22] MEDS: Ampicillin/Sulbactam Sod 3 GM in NS 110 ML IV SCH ×4 (01:06→17:19)
[2019-08-22] MEDS: HYDROcodone/Acetamin 5/325 tab ORAL PRN ×4 (01:55→16:43)
[2019-08-22 04:00] VITALS: BP 109/64
[2019-08-22] MEDS: NovoLOG Insulin Flexpen SUBQ SCH ×4 (06:29→21:00)
[2019-08-22 06:35] LABS: BASOPHILS % (AUTO) 0.6 % (0.0-2.0); EOSINOPHILS % (AUTO) 6.2 % (0.0-3.0); HEMATOCRIT 31.4 % (42.0-52.0); HEMOGLOBIN 10.6 G/DL (14.2-18.0); LYMPHOCYTES % (AUTO) 10.7 % (20.0-45.0); MEAN CORPUSCULAR VOLUME 83 FL (80-99); MONOCYTES % (AUTO) 9.6 % (1.0-10.0); NEUTROPHILS % (AUTO) 72.8 % (45.0-75.0); PLATELET COUNT 171 K/UL (150-450); RED BLOOD COUNT 3.77 M/UL (4.70-6.10); RED CELL DISTRIBUTION WIDTH 11.6 % (11.6-14.8); WHITE BLOOD COUNT 4.5 K/UL (4.8-10.8)
[2019-08-22 06:45] LABS: ANION GAP 7 mmol/L (5-15); BLOOD UREA NITROGEN 8 mg/dL (7-18); CALCIUM 8.2 MG/DL (8.5-10.1); CARBON DIOXIDE 28 MMOL/L (21-32); CHLORIDE 106 MMOL/L (98-107); CREATININE 0.9 MG/DL (0.55-1.30); POTASSIUM 4.2 MMOL/L (3.5-5.1); SODIUM 141 MMOL/L (136-145)
--- NOTE | 2019-08-22 07:26 | NUR ---
HAND-OFF: Report given to ANA Snowden. Pt is in stable condition. Endorsed plan of care.
--- NOTE | 2019-08-22 07:40 | NUR ---
AWAKE/ALERT. NO C/O PAIN. IN NO DISTYRESS.
--- NOTE | 2019-08-22 07:45 | NUR ---
NURSE NOTES: Spoke to regarding patient and new order received. Order read back and carried out.
[2019-08-22 08:00] VITALS: BP 114/65
--- NOTE | 2019-08-22 08:00 | NUR ---
NURSE NOTES: awakealert. no c/o pain. in no distress perez dc'd as orfered. will monitor output.
[2019-08-22] MEDS ORDERED: Iron Sucrose 200 MG in NS 110 ML IV SCH (09:00)
--- NOTE | 2019-08-22 09:12 | General Progress Note ---
Progress Note Progress Note T 100.2 VSS Using occasional [place] for pain. Ambulating Abdomen mildly distended and tympanitic, soft Stoma pink with peristomal edema and soft tissue swelling Urine 300cc overnight BCIR ileo 40cc WBC 4500 hgb down 10.6 Iron 49 Ferritin 27 B12 and folic acid wnl Imp. Ileus Iron deficiency, severe present on admission Plan: Clear liquid diet - may need to be NPO Venofer 200mg IV daily x5 Maintain IV fluids and continuous drainage of Hernandez pouch f/u labs Umer Dixon MD Aug 22, 2019 09:12
--- NOTE | 2019-08-22 09:25 | NUR ---
RD ASSESSMENT & RECOMMENDATIONS SEE CARE ACTIVITY FOR COMPLETE ASSESSMENT DAILY ESTIMATED NEEDS: Needs based on Surgery, wt loss/ 69kg 25-35 kcals/kg 8661-0049 total kcals 1-2 g protein/kg 69-138 g total protein 25-30 mL/kg 9849-6801 total fluid mLs NUTRITION DIAGNOSIS: * Altered GI function R/T h/o UC, admitted w/ malfunctioning BCIR with recurrent stenosis and stricturing of the stoma, s/p revision of BCIR, was on BCIR low residue diet post op, now on CLD, +ileus per MD. * Increased kcal/prot needs R/T stated recent significant wt loss, surgery as evidenced by pt reports unintentional significant wt loss of 30lbs/ 20% within this year, pt is s/p revision of BCIR. CURRENT DIET:BCIR LOW RESIDUE -> CLEAR LIQUID PO DIET RECOMMENDATIONS: Advance diet per MD -> BCIR LOW RESIDUE + CCHO MED ADDITIONAL RECOMMENDATIONS: * Daily standing wt monitoring given possible recent significant wt loss as stated by pt (30lbs/ 20% within this year) * Monitor for diet upgrade in a timely manner BCIR LOW RESIDUE (08/21) -> CLD (08/22) Monitor need for TPN * Ensure CLEAR TID while on CLD
[2019-08-22] MEDS: Ketorolac 30mg Inj IV PRN ×2 (11:55→20:55)
[2019-08-22 12:00] VITALS: BP 120/70
--- NOTE | 2019-08-22 15:28 | NUR ---
NURSE NOTES: ambulated out in the dang.
[2019-08-22 16:00] VITALS: BP 98/63
--- NOTE | 2019-08-22 16:19 | NUR ---
NURSE NOTES: ILEOSTOMY OUTPUT THICK.EXTRA FLUSHES DONE. ENCOURAGED PO FLUIDS. DR Kenia JUARES CALLED,LEFT MESSAGE TO RETURN CALL.
[2019-08-22] MEDS ORDERED: Tubing IV Secondary IV ONE (16:24)
[2019-08-22] MEDS ORDERED: NS 275ml ONE (16:24)
[2019-08-22] MEDS ORDERED: NS Irrig 1000ml ONE (16:24)
[2019-08-22] MEDS: Ascorbic Acid 500mg tab ORAL PRN ×2 (16:42→22:43)
--- NOTE | 2019-08-22 19:00 | NUR ---
NURSE NOTES: resting in bed. in no acute dsitress.
--- NOTE | 2019-08-22 19:20 | NUR ---
HAND-OFF: Report given to Katie GARAY RN. Addendum: 08/22/19 at 1931 by JARED TERRAZAS RN REPORT GIVEN TO BOB PEREZ
[2019-08-22 20:00] VITALS: BP 153/88
--- NOTE | 2019-08-22 20:00 | NUR ---
NURSE NOTES: RECEIVED PT FROM ANA VALENTINE. PT IS AWAKE, AAOX4, ON ROOM AIR, SITTING UP ON CHAIR, NO ACUTE DISTRESS NOTED. PT DENIES PAIN AND SOB. ILEOSTOMY IS PATENT AND DRAINING WELL. DRESSING IS INTACT AND DRY. PICC LINE ON LEFT UPPER ARM IS INTACT AND PATENT, RUNNING 1/2 NS WITH 20MEQ AT 75 ML/HR. PT IS TOLERATING CLEAR LIQUID WELL. CALL LIGHT IS WITHIN REACH. WILL CONTINUE TO MONITOR.
[2019-08-22] MEDS: Dyna-Hex 2% Top Sol 2oz TOPIC SCH (20:55)
[2019-08-23] VITALS: BP 142/79
[2019-08-23] MEDS: Ampicillin/Sulbactam Sod 3 GM in NS 110 ML IV SCH ×4 (00:22→17:20)
[2019-08-23] MEDS: 1/2NS w/KCl 20mEq 1000ml 1,000 ML IV SCH ×2 (00:23→13:05)
[2019-08-23] MEDS: HYDROcodone/Acetamin 5/325 tab ORAL PRN (00:39)
[2019-08-23 04:00] VITALS: BP 145/85
[2019-08-23 05:01] LABS: BASOPHILS % (AUTO) 0.6 % (0.0-2.0); EOSINOPHILS % (AUTO) 9.8 % (0.0-3.0); HEMATOCRIT 32.3 % (42.0-52.0); HEMOGLOBIN 10.7 G/DL (14.2-18.0); LYMPHOCYTES % (AUTO) 11.6 % (20.0-45.0); MEAN CORPUSCULAR VOLUME 83 FL (80-99); PLATELET COUNT 176 K/UL (150-450); RED BLOOD COUNT 3.88 M/UL (4.70-6.10); RED CELL DISTRIBUTION WIDTH 11.9 % (11.6-14.8); WHITE BLOOD COUNT 4.4 K/UL (4.8-10.8)
[2019-08-23] MEDS: Ascorbic Acid 500mg tab ORAL PRN ×3 (05:01→12:27)
[2019-08-23 05:24] LABS: ANION GAP 6 mmol/L (5-15); BLOOD UREA NITROGEN 6 mg/dL (7-18); CALCIUM 8.2 MG/DL (8.5-10.1); CARBON DIOXIDE 28 MMOL/L (21-32); CHLORIDE 107 MMOL/L (98-107); CREATININE 0.9 MG/DL (0.55-1.30); POTASSIUM 4.1 MMOL/L (3.5-5.1); SODIUM 141 MMOL/L (136-145)
[2019-08-23] MEDS: NovoLOG Insulin Flexpen SUBQ SCH ×4 (05:57→20:34)
[2019-08-23] MEDS: Ketorolac 30mg Inj IV PRN ×3 (06:33→20:35)
--- NOTE | 2019-08-23 07:25 | NUR ---
NURSE NOTES: AWAKE/ALERT. NO C/O PAIN. ILEOSTOMY OUTPUT STILL THICK.GIVEN VIT C EARLIER.ENCOURAGE PO FLUIDS. WILL CONTINUE TO MONITOR OUTPUT.
--- NOTE | 2019-08-23 07:41 | NUR ---
HAND-OFF: Report given to ANA Mota. Patient is in stable condition. Endorsed plan of care.
[2019-08-23 08:00] VITALS: BP 124/69
--- NOTE | 2019-08-23 08:30 | NUR ---
NURSE NOTES: ambulatory ad davin out in the dang.
--- NOTE | 2019-08-23 09:51 | General Progress Note ---
Progress Note Progress Note Temp 100.2 overnight VSS Pain is moderate controlled with po meds. Tolerated clear liquids but BCIR ileo output is still thick Abdomen soft, non-distended. Stoma is pink with peristomal incisional edema and some tenderness Urine 4050 BCIR ileo 230 WBC 4400 Hgb 10.7 - getting Jenny Imp. Resolving ileus Plan: Continue IV antibiotics and maintain continuous drainage of Hernandez pouch Advance diet once ileo output becomes thinner Continue Umer Rothman MD Aug 23, 2019 09:51
[2019-08-23] MEDS ORDERED: Iron Sucrose 200 MG in NS 110 ML IV SCH (11:00)
[2019-08-23 12:00] VITALS: BP 133/80
--- NOTE | 2019-08-23 12:45 | 48 Hour Post Anesthesia Eval ---
Post Anesthesia Evaluation Procedure: Revision of continent pouch stoma Date of Evaluation: Aug 23, 2019 Time of Evaluation: 12:45 Nausea: No Vomiting: No Chaparrita Sam MD Aug 23, 2019 12:45
[2019-08-23 16:00] VITALS: BP 134/81
[2019-08-23] MEDS ORDERED: NS Irrig 1000ml ONE (16:24)
--- NOTE | 2019-08-23 17:00 | NUR ---
NURSE NOTES: TAKING FLUIDS AND GRAPE JUICE . HAD VIT C PO ORDERED. ILEOSTOMY OUTPUT FLOWING WELL. STARTED ON BCIR DIABETIC DIET FOR DINNER. .
--- NOTE | 2019-08-23 18:14 | NUR ---
NURSE NOTES: STARTED ON BCIR DIABETIC DIET FOR DINNER TOLERATED WELL. ILEOSTOMY OUTPUT ADEQUATE AND FLOWING WELL.
--- NOTE | 2019-08-23 18:17 | NUR ---
NURSE NOTES: AMBULATING OUT IN THE [place] AD JOIE.
--- NOTE | 2019-08-23 18:56 | NUR ---
NURSE NOTES: condition stable. in no acute distress.
--- NOTE | 2019-08-23 19:32 | NUR ---
HAND-OFF: Report given to valentino stephenson rn.
--- NOTE | 2019-08-23 19:40 | NUR ---
NURSE NOTES: REPORT RECEIVED FROM ANA Rivas. PT IS AWAKE, AAOX4, ON ROOM AIR, NO ACUTE DISTRESS NOTED. SCD PRESENTS, NOT ON PT REFUSES. ILEOSTOMY IS DRAINING WELL. DRESSING IS DRY AND INTACT. PICC LINE ON LEFT UPPER ARM IS PATENT RUNNING D5 1/2 NS WITH 20 MEQ AT 75 ML/H. BED IS LOCKED AND LOW, BED ALARM ON, SIDE RAILS UP X2 AND CALL LIGHT IS WITHIN REACH, URINAL AT BEDSIDE WILL CONTINUE TO MONITOR.
[2019-08-23 20:00] VITALS: BP 126/79
[2019-08-23] MEDS: Dyna-Hex 2% Top Sol 2oz TOPIC SCH (20:35)
--- NOTE | 2019-08-23 21:00 | NUR ---
NURSE NOTES: CHANGED PT DRESSING ON ABDOMEN, SLIGHT DRAINAGE ON GAUZE, SEROSANGUINEOUS. NEW GAUZE APPLIED, ANCHORED ILEOSTOMY W SILK TAPE AND COVERED WITH GAUZE AND PAPER TAPE.
[2019-08-24] VITALS (7 sets, daily range): BP systolic 114–151; BP diastolic 76–91
[2019-08-24] MEDS: Ampicillin/Sulbactam Sod 3 GM in NS 110 ML IV SCH ×5 (00:37→23:27)
[2019-08-24] MEDS: 1/2NS w/KCl 20mEq 1000ml 1,000 ML IV SCH (00:38)
[2019-08-24] MEDS: HYDROcodone/Acetamin 5/325 tab ORAL PRN ×3 (04:23→18:35)
[2019-08-24] MEDS: NovoLOG Insulin Flexpen SUBQ SCH ×4 (06:38→20:37)
[2019-08-24] MEDS: Ascorbic Acid 500mg tab ORAL PRN ×2 (07:27→14:35)
--- NOTE | 2019-08-24 07:30 | NUR ---
NURSE NOTES: Pt sitting in chair w/call light within reach and bed in lowest position. Pt A&Ox4, VSS, and in no apparent distress. SATNAM PICC line intact/asymptomatic w/IVF infusing and surgical dressing C/D/I. Pt has no complaints or concerns at this time. Will continue to monitor.
--- NOTE | 2019-08-24 07:44 | NUR ---
HAND-OFF: Report given to ANA Menendez.
--- NOTE | 2019-08-24 08:15 | NUR ---
NURSE NOTES: Pt seen ambulating independently around unit a few times w/o incident; pt returned to room safely. Will continue to monitor.
--- NOTE | 2019-08-24 09:18 | General Progress Note ---
Progress Note Progress Note AVSS Using Toradol + Tieton for incisional pain. Ambulates freely. Tolerated clear liquid diet Abdomen soft, non-distended. Stoma pink, peristomal incision with decreased edema, serous drainage form misbah Urine 5625 BCIR ileo 1035 Imp. Improving Plan: BCIR diet continue IV antibiotics Venofer Maintain continuous drainage of Hernandez pouch d/c IV fluids Umer Dixon MD Aug 24, 2019 09:18
--- NOTE | 2019-08-24 14:51 | NUR ---
CASE MANAGEMENT:REVIEW 08/22/17 SI::POD #1 S/P COMPLEX REVISION OF VELÁZQUEZ CONTINENT ILEOSTOMY 97.3 56 20 98/63 95% ON RA IS: IV AMPICILLIN Q6HRS IV FLAGYL Q6HRS IVF@75/HR IV TORADOL Q6HRS PRN : MED/SURG STATUS 3 [facility] 08/23/17 SI::POD #2 S/P COMPLEX REVISION OF VELÁZQUEZ CONTINENT ILEOSTOMY 98.6 71 18 124/69 95% ON RA H/H-10.7/32.3 CA-8.2 IS: IV AMPICILLIN Q6HRS IV FLAGYL Q6HRS IVF@75/HR IV TORADOL Q6HRS PRN : MED/SURG STATUS 3 [facility] 08/24/17 SI::POD #3 S/P COMPLEX REVISION OF VEL[place]ZQUE[place] CONTINENT ILEOSTOMY 97.3 60 18 137/85 97% ON RA IS: IV VENOFER QHS IV AMPICILLIN Q6HRS IV FLAGYL Q6HRS IVF@75/HR IV TORADOL Q6HRS PRN : MED/SURG STATUS 3 [facility] PLAN: BCIR DIET CONTINUE IV ABX MAINTAIN CONTINUOUS DRAINAGE OF VELÁZQUEZ POUCH DC IVF
--- NOTE | 2019-08-24 19:11 | NUR ---
HAND-OFF: Report given to ANA Thao.
--- NOTE | 2019-08-24 19:27 | NUR ---
NURSE NOTES: Received patient awake, alert, verbal, ambulatory, sitting in a chair comfortably watching television.
[2019-08-24] MEDS: Iron Sucrose 100 MG in NS 55 ML IV SCH (20:36)
[2019-08-24] MEDS: Dyna-Hex 2% Top Sol 2oz TOPIC SCH (20:36)
[2019-08-25 04:17] VITALS: BP 155/89
[2019-08-25] MEDS: Ampicillin/Sulbactam Sod 3 GM in NS 110 ML IV SCH ×3 (05:25→17:32)
[2019-08-25] MEDS: HYDROcodone/Acetamin 5/325 tab ORAL PRN ×3 (05:27→22:32)
[2019-08-25] MEDS: NovoLOG Insulin Flexpen SUBQ SCH ×4 (06:12→21:16)
[2019-08-25 06:24] LABS: BASOPHILS % (AUTO) 0.6 % (0.0-2.0); HEMATOCRIT 34.5 % (42.0-52.0); HEMOGLOBIN 11.7 G/DL (14.2-18.0); LYMPHOCYTES % (AUTO) 12.1 % (20.0-45.0); MEAN CORPUSCULAR VOLUME 82 FL (80-99); MONOCYTES % (AUTO) 11.6 % (1.0-10.0); NEUTROPHILS % (AUTO) 63.8 % (45.0-75.0); PLATELET COUNT 193 K/UL (150-450); RED BLOOD COUNT 4.22 M/UL (4.70-6.10); RED CELL DISTRIBUTION WIDTH 10.6 % (11.6-14.8); WHITE BLOOD COUNT 4.4 K/UL (4.8-10.8)
[2019-08-25 06:43] LABS: ANION GAP 5 mmol/L (5-15); BLOOD UREA NITROGEN 5 mg/dL (7-18); CALCIUM 8.4 MG/DL (8.5-10.1); CARBON DIOXIDE 31 MMOL/L (21-32); CHLORIDE 105 MMOL/L (98-107); CREATININE 0.8 MG/DL (0.55-1.30); POTASSIUM 3.9 MMOL/L (3.5-5.1); SODIUM 141 MMOL/L (136-145)
--- NOTE | 2019-08-25 07:16 | NUR ---
HAND-OFF: Report given to ANA Romero.
--- NOTE | 2019-08-25 07:20 | NUR ---
NURSE NOTES: Received report from ANA Thao. Rounding done with outgoing nurse. Pt a/o x 4, having a breakfast. No respiratory distress noted. Ileostomy bag is patent, greenish color noted. Surgical abdominal site dressing is not intact. Will change the dressing soon. SATNAM PICC line is patent, dressing is C/D/I. Bed in lowest position, call light within reach. Will continue to monitor.
--- NOTE | 2019-08-25 07:43 | NUR ---
NURSE NOTES: Patient is ambulating hallway with steady gait. No discomfort noted.
[2019-08-25 08:00] VITALS: BP 123/73
[2019-08-25] MEDS ORDERED: Zolpidem 5mg tab ORAL PRN (08:15)
[2019-08-25] MEDS ORDERED: Ketorolac 30mg Inj IV PRN (08:45)
[2019-08-25 12:00] VITALS: BP 130/73
--- NOTE | 2019-08-25 12:15 | NUR ---
RD ASSESSMENT & RECOMMENDATIONS SEE CARE ACTIVITY FOR COMPLETE ASSESSMENT DAILY ESTIMATED NEEDS: Needs based on Surgery, wt loss/ 69kg 25-35 kcals/kg 0102-8046 total kcals 1-2 g protein/kg 69-138 g total protein 25-30 mL/kg 4254-5691 total fluid mLs NUTRITION DIAGNOSIS: * Altered GI function R/T h/o UC, admitted w/ malfunctioning BCIR with recurrent stenosis and stricturing of the stoma, s/p revision of BCIR, was on BCIR low residue diet post op, now on CLD, +ileus per MD-> now diet advanced to BCIR low residue diet w/ good acceptance and tolerance. * Increased kcal/prot needs R/T stated recent significant wt loss, surgery as evidenced by pt reports unintentional significant wt loss of 30lbs/ 20% within this year, pt is s/p revision of BCIR. CURRENT DIET:BCIR LOW RESIDUE + CCHO MED PO DIET RECOMMENDATIONS: MAINTAIN BCIR LOW RESIDUE + CCHO MED ADDITIONAL RECOMMENDATIONS: * Daily standing wt monitoring given possible recent significant wt loss as stated by pt (30lbs/ 20% within this year) * Monitor for continued good PO intake and tolerance * A1C for eval of glycemic control . .
--- NOTE | 2019-08-25 13:40 | NUR ---
NURSE NOTES: Patient is ambulating hallway in stable condition. No discomfort noted.
[2019-08-25 16:00] VITALS: BP 108/68
--- NOTE | 2019-08-25 16:05 | NUR ---
CASE MANAGEMENT:REVIEW 08/25/17 SI::POD #4 S/P COMPLEX REVISION OF VELÁZQUEZ CONTINENT ILEOSTOMY 97.9 68 20 130/73 97% ON RA H/H-11.7/34.5 IS: IV VENOFER QHS IV AMPICILLIN Q6HRS IV FLAGYL Q6HRS IV TORADOL Q6HRS PRN : MED/SURG STATUS 3 [facility]
--- NOTE | 2019-08-25 16:12 | General Progress Note ---
Progress Note Progress Note AVSS Doing well on IV antibiotics, Venofer Abdomen soft Stoma healing, peristomal incision clean, misbah serous only WBC 4400 Hgb 11.7 BUN 5 Cr 0.8 Imp. Stable Plan: Continue IV antibiotics and continuous drainage of Hernandez pouch BCIR low residue diet d/c IV fluids Umer Dixon MD Aug 25, 2019 16:12
--- NOTE | 2019-08-25 18:10 | NUR ---
NURSE NOTES: Patient is ambulating hallway with steady gait. No discomfort noted.
--- NOTE | 2019-08-25 19:37 | NUR ---
HAND-OFF: Report given to ANA Reyes. Pt is stable.
[2019-08-25 20:00] VITALS: BP 121/81
[2019-08-25] MEDS: Iron Sucrose 100 MG in NS 55 ML IV SCH (21:01)
[2019-08-25] MEDS: Dyna-Hex 2% Top Sol 2oz TOPIC SCH (21:01)
--- NOTE | 2019-08-25 22:52 | NUR ---
NURSES NOTE: Received pt sitting in chair, up, A/Ox4, able to communicate needs. Patient denied pain at initial assessment. No s/s of distress noted. Breathing pattern is even and unlabored on RA. VS WNL. Patient ambulates independently and ambulated in the hallway at approximately 2200. Tolerated well. PICC line in SATNAM is patent, with no s/s of infection. Ileo is patent, draining appropriately. All due meds given. Bed at lowest level, call light within reach. Pt will continue to be monitored
[2019-08-26] VITALS: BP 109/69
[2019-08-26] MEDS: Ampicillin/Sulbactam Sod 3 GM in NS 110 ML IV SCH ×5 (00:12→23:31)
[2019-08-26] MEDS: HYDROcodone/Acetamin 5/325 tab ORAL PRN ×4 (03:25→20:46)
[2019-08-26 04:00] VITALS: BP 124/70
[2019-08-26] MEDS: NovoLOG Insulin Flexpen SUBQ SCH ×4 (06:17→21:00)
--- NOTE | 2019-08-26 07:25 | NUR ---
NURSE NOTES: Received report from ANA eRyes. Rounding done with outgoing nurse. Pt a/o x 4, having breakfast. Denies any pain at this time. SATNAM PICC line is patent, dressing was changed by shift commander nurse. Ileostomy bag is with gravity drainage. Bed in lowest position, call light within reach. Will continue to monitor.
[2019-08-26 08:00] VITALS: BP 109/65
--- NOTE | 2019-08-26 08:09 | NUR ---
HAND OFF: Report given to ANA Marc. Patient in stable condition.
--- NOTE | 2019-08-26 11:20 | NUR ---
NURSE NOTES: Patient ambulated hallway x 4 by himself. No discomfort noted.
--- NOTE | 2019-08-26 11:41 | General Progress Note ---
Progress Note Progress Note AVSS Doing well with ambulation and BCIR diet Abdomen soft Stoma and peristomal tissues healing with decreasing edema, no sign of infection Urine 4745 BCIR ileo 990 Imp. Stable Plan: continue IV antibiotics maintain indwelling Hernandez pouch catheter to continuous drainage f/u labs Umer Dixon MD Aug 26, 2019 11:41
[2019-08-26 12:00] VITALS: BP 116/69
--- NOTE | 2019-08-26 14:01 | NUR ---
CASE MANAGEMENT:REVIEW 08/26/17 SI::POD #5 S/P COMPLEX REVISION OF VELÁZQUEZ CONTINENT ILEOSTOMY 97.9 64 20 116/69 98% ON RA IS: IV VENOFER QHS IV AMPICILLIN Q6HRS IV FLAGYL Q6HRS IV TORADOL Q6HRS PRN NORCO PO Q4HRS PRN : MED/SURG STATUS 3 [facility]: CONTINUE IV ANTIBIOTICS MAINTAIN INDWELLING VELÁZQUEZ POUCH CATHETER TO CONTINUOUS DRAINAGE
--- NOTE | 2019-08-26 14:30 | NUR ---
NURSE NOTES: Patient is ambulating hallway with steady gait. Pt is stable.
[2019-08-26 16:00] VITALS: BP 122/78
--- NOTE | 2019-08-26 17:49 | NUR ---
NURSE NOTES: Patient is ambulating hallway in stable condition.
[2019-08-26] MEDS ORDERED: Tubing IV Secondary IV ONE (18:33)
[2019-08-26] MEDS ORDERED: NS 500ML ONE (18:33)
[2019-08-26] MEDS ORDERED: NS Irrig 1000ml ONE (18:33)
--- NOTE | 2019-08-26 19:24 | NUR ---
HAND-OFF: Report given to ANA Terrell. Pt is stable.
--- NOTE | 2019-08-26 19:30 | NUR ---
NURSE NOTES: Received report from ANA Marc and rounds made with outgoing nurse. Received pt sitting in chair, AOx4, pain level 3/10. Surgical dressing with minimal dressing. Will change dressing when pt return in bed. No distress noted. Ileo to drainage bag. Call light within reach. Will continue to monitor.
[2019-08-26 20:00] VITALS: BP 126/77
[2019-08-26] MEDS: Dyna-Hex 2% Top Sol 2oz TOPIC SCH (20:24)
[2019-08-26] MEDS: Iron Sucrose 100 MG in NS 55 ML IV SCH (20:51)
--- NOTE | 2019-08-26 21:00 | NUR ---
NURSE NOTES: Abdominal dressing with moderate drainage. Changed dressing with 4x4 gauze, abd. and paper tape. Will continue to monitor.
[2019-08-27] VITALS: BP 125/68
[2019-08-27] MEDS: HYDROcodone/Acetamin 5/325 tab ORAL PRN ×3 (02:05→17:53)
[2019-08-27 04:00] VITALS: BP 113/73
[2019-08-27] MEDS: Ampicillin/Sulbactam Sod 3 GM in NS 110 ML IV SCH ×4 (06:08→23:51)
[2019-08-27 06:18] LABS: BASOPHILS % (AUTO) 1.2 % (0.0-2.0); HEMATOCRIT 33.4 % (42.0-52.0); LYMPHOCYTES % (AUTO) 17.4 % (20.0-45.0); MEAN CORPUSCULAR VOLUME 83 FL (80-99); MONOCYTES % (AUTO) 11.5 % (1.0-10.0); NEUTROPHILS % (AUTO) 57.9 % (45.0-75.0); PLATELET COUNT 204 K/UL (150-450); RED BLOOD COUNT 4.04 M/UL (4.70-6.10); RED CELL DISTRIBUTION WIDTH 11.9 % (11.6-14.8); WHITE BLOOD COUNT 4.4 K/UL (4.8-10.8)
[2019-08-27] MEDS: NovoLOG Insulin Flexpen SUBQ SCH ×4 (06:21→20:33)
[2019-08-27 06:36] LABS: ALANINE AMINOTRANSFERASE 40 U/L (12-78); ALBUMIN 2.8 G/DL (3.4-5.0); ALKALINE PHOSPHATASE 52 U/L (46-116); ANION GAP 0 mmol/L (5-15); ASPARTATE AMINO TRANSFERASE 49 U/L (15-37); BILIRUBIN,TOTAL 0.2 MG/DL (0.2-1.0); BLOOD UREA NITROGEN 6 mg/dL (7-18); CALCIUM 8.2 MG/DL (8.5-10.1); CARBON DIOXIDE 34 MMOL/L (21-32); CHLORIDE 105 MMOL/L (98-107); CREATININE 0.9 MG/DL (0.55-1.30); SODIUM 139 MMOL/L (136-145)
--- NOTE | 2019-08-27 07:43 | NUR ---
HAND-OFF: Report given to ANA Poon. Pt in stable condition.
--- NOTE | 2019-08-27 07:45 | NUR ---
NURSE NOTES: Received report from Xander PEREZ. Patient is awake and oriented, no acute distress noted, reporting no pain at this time. Ileo to gravity drainage. SATNAM PICC intact, patent. Patient is having breakfast and tolerating well, no complaints of bloating/discomfort. Patient updated on plan of care for the day. Side rails upx2, bed low and locked, call light within reach.
[2019-08-27 08:00] VITALS: BP 126/75
--- NOTE | 2019-08-27 09:24 | NUR ---
NURSE NOTES: Performed PRN dressing change for soaked surgical dressing. Patient tolerated well. No signs of infection noted at surgical site, misbah drain in place.
--- NOTE | 2019-08-27 11:49 | General Progress Note ---
Progress Note Progress Note AVSS Surgical pain is decreased. Has odor and increased drainage overnight but drainage is serous Abdomen soft. Stoma is pink, slight retraction, peristomal incision clean. [place] removed. C&S swabs taken. Urine 3900 BCIR ileo 940 WBC 4400 Hgb 11 - on Venofer Imp. Peristomal drainage and odor Plan: Await C&S wound care complete 1 week of Unasyn+Flagyl maintain continuous drainage of Hernandez pouch with indwelling catheter stool for C. diff toxin Umer Dixon MD Aug 27, 2019 11:49
[2019-08-27 12:00] VITALS: BP 141/85
[2019-08-27] MEDS ORDERED: LORazepam 1mg tab SL PRN ×2 (12:00→21:00)
[2019-08-27 16:00] VITALS: BP 129/78
--- NOTE | 2019-08-27 16:35 | NUR ---
CASE MANAGEMENT:REVIEW 08/27/17 SI::POD #6 S/P COMPLEX REVISION OF VELÁZQUEZ CONTINENT ILEOSTOMY 98.4 68 16 141/85 99% ON RA IS: IV VENOFER QHS IV AMPICILLIN Q6HRS IV FLAGYL Q6HRS IV TORADOL Q6HRS PRN NORCO PO Q4HRS PRN : MED/SURG STATUS 3 [facility]
--- NOTE | 2019-08-27 18:30 | NUR ---
NURSE NOTES: Total ileo output for shift: +895mL Total urine output: 1875mL
--- NOTE | 2019-08-27 19:21 | NUR ---
HAND-OFF: Report given to Xander PEREZ.
--- NOTE | 2019-08-27 19:40 | NUR ---
NURSE NOTES: Received report from ANA Poon. Received pt sitting up in chair, AOx4, denies any pain. Surgical dressing c/d/i. L UA piccline c/d/i. No distress noted. Call light within reach. Will continue to monitor.
[2019-08-27 20:00] VITALS: BP 126/83
[2019-08-27] MEDS: Iron Sucrose 100 MG in NS 55 ML IV SCH (20:26)
[2019-08-27] MEDS: Dyna-Hex 2% Top Sol 2oz TOPIC SCH (20:26)
--- NOTE | 2019-08-27 20:30 | NUR ---
NURSE NOTES: Ambulated in the hallway x 4, gait steady, no distress noted. Safely back in the room. Denies any pain, no distress noted. Will continue to monitor.
[2019-08-28] VITALS: BP 137/81
--- NOTE | 2019-08-28 01:10 | NUR ---
NURSE NOTES: Performed PRN dressing change for soaked surgical dressing. Patient tolerated well. No signs of infection noted at surgical site. Tylenol 650mg PO given for pain control per pt's request. Will continue to monitor.
[2019-08-28] MEDS: Ampicillin/Sulbactam Sod 3 GM in NS 110 ML IV SCH (05:41)
[2019-08-28] MEDS: NovoLOG Insulin Flexpen SUBQ SCH ×4 (05:43→20:52)
[2019-08-28 05:53] VITALS: BP 143/76
--- NOTE | 2019-08-28 07:18 | NUR ---
HAND-OFF: Report given to ANA Poon. Pt in stable condition.
[2019-08-28] MEDS: HYDROcodone/Acetamin 5/325 tab ORAL PRN ×2 (07:49→19:49)
[2019-08-28 08:00] VITALS: BP 144/84
--- NOTE | 2019-08-28 08:00 | NUR ---
NURSE NOTES: Received report from Xander PEREZ. Patient is awake and oriented, no acute distress noted, reporting surgical site pain rated 6/10, medicated per order. SATNAM PICC intact, patent. Patient tolerated breakfast well. Updated on plan of care for the day. Side rails upx2, bed low and locked, call light within reach.
--- NOTE | 2019-08-28 09:49 | NUR ---
CASE MANAGEMENT:REVIEW 08/28/17 SI::POD #7 S/P COMPLEX REVISION OF VELÁZQUEZ CONTINENT ILEOSTOMY 98.2 68 16 144/84 96% ON RA IS: IV VENOFER QHS IV AMPICILLIN Q6HRS IV FLAGYL Q6HRS IV TORADOL Q6HRS PRN NORCO PO Q4HRS PRN : MED/SURG STATUS 3 [facility]: AWAIT C&S WOUND CARE COMPLETE 1 WEEK OF BOTH IV ANTIBIOTICS MAINTAIN CONTINUOUS DRAINAGE OF VELÁZQUEZ POUCH W/INDWELLING CATHETER
--- NOTE | 2019-08-28 10:50 | General Progress Note ---
Progress Note Progress Note AVSS Kathy-stomal surgical pain is decreasing Abdomen soft Incision clean Drainage appears to be mucous from stoma C.diff negative prelim wound C&S ng Urine 3775 BCIR ileo 1615 Imp. Improving Plan: d/c IV antibiotics f/u labs maintain continuous drainage of Hernandez pouch additional 24-48 hours then start RN supervised self-intubations Umer Dixon MD Aug 28, 2019 10:50
[2019-08-28 12:00] VITALS: BP 124/88
[2019-08-28 16:00] VITALS: BP 148/87
--- NOTE | 2019-08-28 18:34 | NUR ---
NURSE NOTES: Total ileo output for shift: +570mL Total urine output: 1625mL Patient tolerated all meals well, reported minimal pain throughout shift.
--- NOTE | 2019-08-28 19:11 | NUR ---
HAND-OFF: Report given to Xander PEREZ.
--- NOTE | 2019-08-28 19:30 | NUR ---
NURSE NOTES: Received report from ANA Poon. Received pt sitting in chair, AOx4, pain level 6/10, will medicate for pain. Surgical dressing c/d/i. Ileostomy to drainage bag. L UA piccline patent and intact. Call light within reach. Will continue to monitor.
[2019-08-28] MEDS: Dyna-Hex 2% Top Sol 2oz TOPIC SCH (19:55)
[2019-08-28 20:00] VITALS: BP 133/80
[2019-08-28] MEDS: Iron Sucrose 100 MG in NS 55 ML IV SCH (20:35)
--- NOTE | 2019-08-28 22:00 | NUR ---
NURSE NOTES: Ambulating in the hallway gait steady, no sign of distress noted. Will continue to monitor.
[2019-08-29] VITALS: BP 122/77
--- NOTE | 2019-08-29 03:00 | NUR ---
NURSE NOTES: Performed PRN dressing change for soaked surgical dressing. Patient tolerated well. No signs of infection noted at surgical site. Complaint of abdominal discomfort 5/10 pain level. [place] 2 tabs given. Will continue to monitor.
[2019-08-29] MEDS: HYDROcodone/Acetamin 5/325 tab ORAL PRN ×3 (03:02→23:53)
[2019-08-29 05:00] VITALS: BP 120/66
[2019-08-29] MEDS: Ascorbic Acid 500mg tab ORAL PRN (05:53)
[2019-08-29 06:14] LABS: EOSINOPHILS % (AUTO) 10.4 % (0.0-3.0); HEMATOCRIT 35.9 % (42.0-52.0); LYMPHOCYTES % (AUTO) 19.7 % (20.0-45.0); MEAN CORPUSCULAR VOLUME 83 FL (80-99); MONOCYTES % (AUTO) 10.2 % (1.0-10.0); NEUTROPHILS % (AUTO) 58.6 % (45.0-75.0); PLATELET COUNT 259 K/UL (150-450); RED BLOOD COUNT 4.33 M/UL (4.70-6.10); RED CELL DISTRIBUTION WIDTH 12.3 % (11.6-14.8); WHITE BLOOD COUNT 4.8 K/UL (4.8-10.8)
[2019-08-29] MEDS: NovoLOG Insulin Flexpen SUBQ SCH ×4 (06:21→20:48)
[2019-08-29 06:42] LABS: ALANINE AMINOTRANSFERASE 52 U/L (12-78); ALKALINE PHOSPHATASE 55 U/L (46-116); ANION GAP 8 mmol/L (5-15); ASPARTATE AMINO TRANSFERASE 42 U/L (15-37); BILIRUBIN,TOTAL 0.2 MG/DL (0.2-1.0); BLOOD UREA NITROGEN 12 mg/dL (7-18); CALCIUM 8.5 MG/DL (8.5-10.1); CARBON DIOXIDE 29 MMOL/L (21-32); CHLORIDE 105 MMOL/L (98-107); CREATININE 0.8 MG/DL (0.55-1.30); POTASSIUM 4.1 MMOL/L (3.5-5.1); SODIUM 142 MMOL/L (136-145)
--- NOTE | 2019-08-29 07:15 | NUR ---
HAND-OFF: Report given to Damion Marshall RN. Pt in stable condition.
--- NOTE | 2019-08-29 07:33 | NUR ---
NURSE NOTES: Received pt from Xander, pt was eating no c/o pain. or distress. call light w/in reach.
[2019-08-29 08:00] VITALS: BP 123/76
[2019-08-29] MEDS ORDERED: NS 275ml ONE (09:59)
--- NOTE | 2019-08-29 10:14 | General Progress Note ---
Progress Note Progress Note AVSS Dressing soaked through again overnight - no stool. Prior C&S no growth so far. He does not have pain Abdomen soft. Stoma clean. Small SQ cavity medial under incision - packed with 4x4 Urine 3925 BCIR ileo 990 WBC 4800 Hgb 12 Platelets 259,000 Albumin up 3.0 Imp. slowly improving Plan: Start RN supervised BCIR self-intubations in Umer Dixon MD Aug 29, 2019 10:14
[2019-08-29 12:00] VITALS: BP 128/83
[2019-08-29 16:00] VITALS: BP 135/78
--- NOTE | 2019-08-29 17:04 | NUR ---
CASE MANAGEMENT: REVIEW SI: MALFUNCTION OF VELÁZQUEZ ILEOSTOMY . RECURRENT STOMA STRICTURE OF VELÁZQUEZ POUCH LAP REVISION OF CONTINENT POUCH STOMA . VELÁZQUEZ POUCH ENDOSCOPY 08/19 T 97.7 HR 54 RR 18 BP 122/77 SAT 97% ROOM AIR H/H 12.0/35.9 AST 42 IS: TORADOL 30MG IV Q6HR PRN ZOFRAN IV Q4HR PRN VIT C 500MG PO Q4HR FOR CONSTIPATION MED/SURG STATUS DCP: PATIENT IS FROM HOME
--- NOTE | 2019-08-29 19:45 | NUR ---
NURSE NOTES: Received report from ANA Bruno. Rounds done, patient sitting up in chair, no complains of pain. Has ambulated several times today in hallway.
--- NOTE | 2019-08-29 19:51 | NUR ---
HAND-OFF: Report given to ANA Elizabeth. pt is stable condition.
[2019-08-29 20:00] VITALS: BP 131/85
--- NOTE | 2019-08-29 20:20 | NUR ---
NURSE NOTES: Patient alert, oriented. Ileo to drainage bag, intact and patent. Abdominal dressing intact and dry. Patient states would like the dressing changed later on this evening. Bed in low position, locked, side rails up x2, call light within reach. Will continue to monitor.
[2019-08-29] MEDS: Dyna-Hex 2% Top Sol 2oz TOPIC SCH (20:34)
[2019-08-30] VITALS: BP 140/85
[2019-08-30 05:45] VITALS: BP 119/77
--- NOTE | 2019-08-30 06:00 | NUR ---
NURSE NOTES: 12 hour ileo output: 600 - 80 (NS flushes)= 520 cc true ileo output
[2019-08-30] MEDS: NovoLOG Insulin Flexpen SUBQ SCH ×4 (06:30→21:06)
--- NOTE | 2019-08-30 07:15 | NUR ---
HAND-OFF: Report given to ANA Lanza.
--- NOTE | 2019-08-30 07:16 | NUR ---
NURSE NOTES: Received pt from ANA Elizabeth. Pt AAO x 4. Room air. Abdominal dressing C/D/I. Ileostomy drainage intact and patent, draining by gravity. Bed in the lowest and locked. Call light within reach. Will continue to monitor
[2019-08-30 08:00] VITALS: BP 132/78
--- NOTE | 2019-08-30 10:06 | General Progress Note ---
Progress Note Progress Note AVSS Moderate serous and mucous drainage from stoma Peristomal incision healing nicely BCIR ileo catheter removed - reinserts readily Urine 3325 BCIR ileo 1065 on BCIR diet Imp. Improved Plan: Start RN supervised BCIR self-intubations q3h am to hs and prn Additional Venofer 200mg tonight - total 1100mg will have been infused continue I&O Umer Dixon MD Aug 30, 2019 10:06
[2019-08-30 11:52] VITALS: BP 123/70
[2019-08-30 15:51] VITALS: BP 131/79
[2019-08-30] MEDS ORDERED: NS Irrig 1000ml ONE (17:23)
--- NOTE | 2019-08-30 17:38 | NUR ---
NURSE NOTES: Patient self-intubated himself with RN supervision with no difficulty and tolerated well with output of 100 ml @ 1300 and 125 ml @ 1600
--- NOTE | 2019-08-30 18:42 | NUR ---
NURSE NOTES: 12 hr output Urine: 3250 ml Ileostomy: 350ml (from bag) - 20ml (flush) + 225ml (self-intubation)= 555 ml
--- NOTE | 2019-08-30 19:05 | NUR ---
HAND-OFF: Report given to ANA Elizabeth.
--- NOTE | 2019-08-30 19:06 | NUR ---
NURSE NOTES: Received report from ANA Lanza. Rounds done, no distress noted. Patient sitting up in chair.
[2019-08-30 20:00] VITALS: BP 138/84
[2019-08-30] MEDS: Dyna-Hex 2% Top Sol 2oz TOPIC SCH (20:17)
--- NOTE | 2019-08-30 20:30 | NUR ---
NURSE NOTES: Patient alert, oriented. Has started intubating ileo with RN supervision earlier today, no distress noted. PICC intact and patent, both lumen. No complaints of pain. Will continue to monitor.
[2019-08-30] MEDS ORDERED: Iron Sucrose 200 MG in NS 110 ML IV ONE (21:00)
[2019-08-30] MEDS: Ascorbic Acid 500mg tab ORAL PRN (21:10)
[2019-08-31] VITALS: BP 130/78
--- NOTE | 2019-08-31 06:00 | NUR ---
NURSE NOTES: Patient did very well intubating last night under RN supervision, no difficulties noted. will continue to monitor.
[2019-08-31] MEDS: NovoLOG Insulin Flexpen SUBQ SCH ×4 (06:12→21:03)
[2019-08-31 06:19] VITALS: BP 130/82
--- NOTE | 2019-08-31 07:15 | NUR ---
HAND-OFF: Report given to ANA Menendez. Rounds done.
--- NOTE | 2019-08-31 07:30 | NUR ---
NURSE NOTES: Pt sitting in chair w/bed in lowest position and call light within reach. Pt A&Ox4, VSS, and in no apparent distress. SATNAM PICC line intact/asymptomatic & H/L; and surgical dressing C/D/I. Pt self-intubating Q3HR and as needed; pt has no complaints or concerns at this time. Will continue to monitor.
[2019-08-31 08:00] VITALS: BP 135/78
--- NOTE | 2019-08-31 08:19 | General Progress Note ---
Progress Note Progress Note AVSS doing well with self-intubations of Hernandez pouch using 30Fr Kayleen catheter Continues to heal nicely Will provide discharge supplies Discharge in AM if continues stable Umer Dixon MD Aug 31, 2019 08:19
[2019-08-31 11:55] VITALS: BP 134/88
--- NOTE | 2019-08-31 12:00 | NUR ---
HAND-OFF: Report given to ANA Guzman.
--- NOTE | 2019-08-31 15:06 | NUR ---
RD ASSESSMENT & RECOMMENDATIONS SEE CARE ACTIVITY FOR COMPLETE ASSESSMENT DAILY ESTIMATED NEEDS: Needs based on Surgery, wt loss/ 69kg 25-35 kcals/kg 3151-2091 total kcals 1-2 g protein/kg 69-138 g total protein 25-30 mL/kg 2645-8212 total fluid mLs NUTRITION DIAGNOSIS: * Altered GI function R/T h/o UC, admitted w/ malfunctioning BCIR with recurrent stenosis and stricturing of the stoma, s/p revision of BCIR, was on BCIR low residue diet post op, now on CLD, +ileus per MD-> now diet advanced to BCIR low residue diet w/ good acceptance and tolerance. * Increased kcal/prot needs R/T stated recent significant wt loss, surgery as evidenced by pt reports unintentional significant wt loss of 30lbs/ 20% within this year, pt is s/p revision of BCIR. CURRENT DIET:BCIR LOW RESIDUE PO DIET RECOMMENDATIONS: MAINTAIN BCIR LOW RESIDUE + CCHO MED ADDITIONAL RECOMMENDATIONS: * Daily standing wt monitoring given possible recent significant wt loss as stated by pt (30lbs/ 20% within this year) * Monitor for continued good PO intake and tolerance * A1C for eval of glycemic control . .
--- NOTE | 2019-08-31 15:47 | NUR ---
CASE MANAGEMENT:REVIEW 08/31/17 SI::POD #10 S/P COMPLEX REVISION OF VELÁZQUEZ CONTINENT ILEOSTOMY 97.5 66 20 134/88 98% ON RA IS:NORCO PO Q4HRS PRN VIT C Q4HRS PRN CONSTIPATION SS INSULIN : MED/SURG STATUS 3 EAST PLAN: DISCHARGE PLANNING SUPPLY DISCHARGE SUPPLIES: 28 BRIGHT, CATHETER PLUG, DRAINAGE BAG, IRRIGATION TRAY REMOVE PICC LINE MAY SHOWER DC 09/01/19
[2019-08-31 16:00] VITALS: BP 150/89
--- NOTE | 2019-08-31 17:10 | NUR ---
NURSE NOTES: PICC Line removed, from left upper arm, Infection control protocol put in place, mask placed on conventional underwriter and pt. O2 Sat monitored during and fifteen minutes after , removal. Measuring 48 cm from tip to start of double lumen catheter. No signs of distress, or active bleeding to site. Pressure applied for 4 minutes, no active bleeding. Saturation maintained above 97 % on room air. Will continue to be monitored
--- NOTE | 2019-08-31 19:50 | NUR ---
NURSES NOTE: Met patient in room, sitting in chair, A/OX4, able to let needs be known. Currently denies pain. Breathing pattern is even and unlabored on RA. No outward s/s of distress noted. PICC line removal site, SATNAM, is without signs of complications. Patient to be d/c in AM. Bed at lowest level, call light within reach.
[2019-08-31 20:00] VITALS: BP 133/82
--- NOTE | 2019-08-31 20:09 | NUR ---
NURSE NOTES: Care taken over for pt, able to intubate properly , brown in color malodorous thin in consistency. Pt voids with urinal, and is aware to keep urine in urinal for monitoring. Has pending discharge for tomorrow. Blood Sugar 160 at dinner covered 4 units of insulin Pt ambulated in hallway several times tolerated all meals eating 100 percent Oncoming nurse made aware of pending discharge prior to 8 am total oral intake 2698 urine output 2100 ileostomy output 775
--- NOTE | 2019-08-31 20:14 | NUR ---
HAND-OFF: Report given to Loren PEREZ.
[2019-09-01 00:49] VITALS: BP 145/88
--- NOTE | 2019-09-01 03:20 | NUR ---
NURSES NOTE: Pt self-intubating successfully. Emptied 180 cc at apprx 2100. VS stable thus far for NOC shift. Pt states he will be picked up via cab at 0900. D/C paper work initiated and remaining will be endorsed to AM shift RN.
[2019-09-01 04:00] VITALS: BP 137/81
[2019-09-01] MEDS: NovoLOG Insulin Flexpen SUBQ SCH (06:26)
--- NOTE | 2019-09-01 07:58 | NUR ---
HAND OFF: Report given to ANA Vidales.
--- NOTE | 2019-09-01 08:00 | NUR ---
NURSE NOTES: Patient sitting in chair and awake. No complain of pain or distress at this time. Skin intact and dry. Surgical site intact and dry. Discharge instruction given by cage shift manager nurse and waiting for ride. Bed lowest position. Call light within reach. Will continue to monitor.
--- NOTE | 2019-09-01 08:45 | NUR ---
NURSE NOTES: Patient discharged in stable condition. Discharge instruction given to patient and verbalized understanding. Discharge supplies and belonging given to patient. ID removed. Patient ambulated out with all personal belongings with steady gait.
--- NOTE | 2019-09-02 09:45 | Discharge Summary ---
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 54-year-old male in overall stable health with a malfunctioning Hernandez continent ileostomy with recurrent stricture of his stoma. In 1993, he underwent proctocolectomy with Sarahi ileostomy, which was converted in 2008 to a Hernandez type of Kock pouch continent ileostomy. He required revision of the stoma in October 2009 and revision of the valve of his pouch in February 2010. On 12/19/2018 in [place], he underwent another revision of his stoma, but that has resulted in poor healing, with the stoma being very stenotic and retracted mucosa, although he was able to insert his intubation catheter to evacuate stool several times daily. For several months, he used an indwelling stent, but the stoma had not improved and he struggled to get the catheter into the opening. He was not having any of the pouch problems. He was scheduled to undergo admission with pouch endoscopy and revision of the stoma or laparotomy with creation of a new valve with preservation of the existing Hernandez pouch with creation of a new valve and stoma, possible relocation to the left lower quadrant. Procedures s/p 08/[address] Dixon Hernandez continent ileostomy pouch endoscopy s/p 08/21/[address] Dixon Complex revision of Hernandez continent ileostomy stoma in depth Hospital Course patient admitted chest x-ray revealed no acute cardiopulmonary pathology patient started on the IV hydration patient had PICC line placement patient undergone Hernandez pouch endoscopy on 08/19 which revealed stoma stricture and retracted mucosa clinical exam revealed right lower quadrant mass with marked peristomal inflammation and induration with tenderness following removal of the endoscope, 28-Slovenian Serrano was manipulated into the pouch to completely decompressed it, taped it to the skin with a dressing over the stoma and connected to a continuous gravity drainage. Patient undergone successful placement of PICC line catheter on 1112. continuous drainage of Hernandez continent ileostomy was maintained. patient undergone CT of the abdomen and pelvis with contrast on which revealed no hernia, no abscess full discussion was held with patient regarding stoma revision, possible laparotomy with revision of Hernandez pouch and gastrostomy , including general risk and specific risk of BCIR revision patient consented to surgery patient started on IV Flagyl and Unasyn patient started on subcutaneous heparin patient was kept n.p.o. after midnight patient subsequently undergone on 08/21 complex revision of Hernandez continent ileostomy , stoma in depth patient tolerated procedure well pain management was addressed patient was followed-up with the labs stable B12 and folic acid intake and output was closely monitored patient started on clear liquid diet as tolerated patient started on IV Venofer daily for 5 days IV fluids and continuous drainage of Hernandez pouch maintained pain was controlled with oral medications patient tolerated clear liquid diet but BCIR ileal output was still thick ileus was resolving patient was continued on IV antibiotic continuous drainage of Hernandez pouch was maintained patient advanced to BCIR low residue diet IV fluids discontinued after patient was able to tolerate continues drainage of Hernandez pouch was maintained intake and output and labs were closely monitored stoma and peristomal tissues were healing well with decreasing edema, no evidence of infection [place] drain was removed on 08/27 peristomal incision appeared clean, stoma pink with slight retraction wound care provided patient completed 1 week of antibiotics stool for C. difficile was negative patient started on RN supervised BCIR self- intubation every 3 hours a.m. to hs and as needed patient was doing well with self intubation of Hernandez pouch using 30 Slovenian Kayleen catheter discharge supplies provided instructions/supplies/limitations discussed/provided patient clinically stabilized and was ready for discharge outpatient follow up as advised by surgeon FINAL DIAGNOSES 1. 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 2. History of ulcerative colitis. 3. Status post multiple abdominal operations. 3.1. Proctocolectomy and Sarahi ileostomy in 1993. 3.2. Hernandez continent intestinal reservoir 2008. 3.3. Revision of Hernandez continent ileostomy stoma in October 2009. 3.4. Revision for Hernandez continent ileostomy valve February 2010. 3.5. Revision of Hernandez continent ileostomy stoma performed in [place] in December 2018. 4. s/p Hernandez continent pouch endoscopy 5. s/p complex revision of Hernandez continent ileostomy stoma in depth 08/21/2019 Discharge Medications Continued Medications: Metformin Hcl* (Metformin Hcl*) 1,000 Mg Tablet 2000 MG ORAL DAILY, TAB (This prescription has been renewed) Pantoprazole* (Pantoprazole*) 40 Mg Tablet.dr 40 MG ORAL DAILY, TAB (This prescription has been renewed) Discharge Condition Upon Discharge: stable Discharge Disposition Patient was discharged home Discharge Instructions Discharge Instructions Special Instructions I have been assigned to complete a D/C Summary on this account. I was not involved in the patient management Yovana Hughes NP Sep 02, 2019 09:45
== END 2019-09-01 08:45 | disposition home or self-care (01) | DRG 348 ==
LOC: SDSOVERFLO 08:43 → 3E 09:00
PROC: 0DJD8ZZ Inspection of Lower Intestinal Tract, Via Natural or Artificial Opening Endoscopic (ICD-10-PCS; principal; 2019-08-19 13:08)
PROC: 0WQFXZ2 Repair Abdominal Wall, Stoma, External Approach (ICD-10-PCS; 2019-08-21)
DX: K94.13 Enterostomy malfunction (principal); K56.7 Ileus, unspecified
CPT/HCPCS: 36415; 36569; 71045; 74177; 76937; 80048; 80053; 81003; 82607; 82728; 82746; 82962; 83540; 83550; 85025; 85610; 85730; 86850; 86900; 86901; 87070; 87181; 87205; 87324; 93005; 94003; 94150; J1815; J2250